=== PATIENT | female | born 1940 | race Caucasian/White ===

== ENCOUNTER → 2017-05-13 09:37 | Outpatient (CLI) | payer MEDICARE ==
[2015-03-30 11:54] VITALS: BMI 19.1
[~2017-05-13 09:37] MED LIST: LISINOPRIL10 MG PO
== END ==
LOC: D.MAMMO 09:37
DX: Z85.3 Personal history of malignant neoplasm of breast (principal); Z12.31 Encounter for screening mammogram for malignant neoplasm of breast

== ENCOUNTER → 2017-05-27 08:05 | Outpatient (CLI) | payer MEDICARE ==
[2015-03-30 11:54] VITALS: BMI 19.1
== END | disposition home or self-care (01) ==
LOC: D.US 08:05
DX: R92.8 Other abnormal and inconclusive findings on diagnostic imaging of breast (principal)

== ENCOUNTER 2017-06-10 05:43 | Day surgery (SDC) | payer MEDICARE ==
[~2017-06-10 05:43] MED LIST changes: +MIRTAZAPINE PO
[2017-06-10 06:17] LABS: BASOPHILS 0.9 % (0-2); EOSINOPHILS 5.4 % (0-7); HEMATOCRIT 43.9 % (36.0-48.0); HEMOGLOBIN 14.8 g/dL (12-16); IMMATURE GRANULOCYTES 0.3 % (0-5); LYMPHOCYTES 30.7 % (15-50); MCHC 33.7 g/dL (31.0-37.0); MCV 91.8 fL (80.0-100.0); MEAN PLATELET VOLUME 9.4 fL (7.4-10.4); NEUTROPHILS 49.7 % (40-80); PLATELET COUNT 295 10x3/uL (130-400); RBC 4.78 10x6/uL (4.00-5.40); RDW 15.5 % (11.5-14.5); WBC 10.1 10x3/uL (4.8-10.8)
[2017-06-10] MEDS ORDERED: REMERON15 MG PO (06:24)
[2017-06-10 06:26] VITALS: BP 188/79; BMI 21.3
[2017-06-10 06:29] LABS: ANION GAP 15.5 mmol/L (8-16); CALCIUM 9.3 mg/dL (8.5-10.1); CARBON DIOXIDE 23.4 mmol/L (21.0-32.0); CREATININE - SERUM 1.1 mg/dL (0.6-1.3); POTASSIUM - SERUM 3.9 mmol/L (3.5-5.1)
[2017-06-10] MEDS ORDERED: HYDROCODONE-APA1 TAB PO (13:28)
--- NOTE | 2017-06-10 15:48 | NUR ---
1430 IV DC WITH CATHER TIP INTACT
--- NOTE | 2017-06-11 12:36 | OP ---
PATIENT NAME: SKYE FAJARDO MEDICAL RECORD: [id number] :38 LOCATION:[facility] ADMISSION DATE: SURGEON: PANDA ARRIOLA MD DATE OF OPERATION: 06/10/2017 PREOPERATIVE DIAGNOSES: 1. Left breast cancer. 2. Chronic obstructive pulmonary disease. 3. Hypertension. 4. Congestive heart failure, unspecified. 5. Hyperlipidemia. POSTOPERATIVE DIAGNOSES: 1. Left breast cancer. 2. Chronic obstructive pulmonary disease. 3. Hypertension. 4. Congestive heart failure, unspecified. 5. Hyperlipidemia. PROCEDURES: 1. Needle loc left breast lumpectomy. 2. Left axillary sentinel lymph node biopsy. SURGEON: Panda Arriola MD REPORT OF PROCEDURE: The patient's left chest and axilla were prepped and draped in sterile fashion. Preoperatively, the patient had undergone needle localization along with lymphoscintigraphy. The needle was projecting out of the superior medial aspect of the patient's left breast. A skin incision was made overlying this. We followed the wire down removing a core of tissue through the breast. The wire was completely excised with the surrounding tissues. We sent this off to radiology to assess if the specimen was intact. The subcutaneous tissues were then irrigated out thoroughly with sterile water and any bleeding was then treated with electrocautery. We packed this wound and then proceeded to the patient's left axilla. We inspected the area and then ended up making an incision on the inferior aspect of the axillary space. The electrocautery was used to dissect through the subcutaneous tissues into the axillary fascia. Once inside the axilla, a Neoprobe was used to find the sentinel lymph node. There was a chain of about 3 sentinel lymph nodes that were right in proximity to one another. These 3 were all removed and sent off for permanent specimen. The highest reading with these was 450 and the low was 240. The remainder of the axilla was free of any major radiotracer uptake. At this point, we irrigated out this wound with sterile water. The fascia was reapproximated with interrupted 3-0 Vicryls and the skin was closed with running subcutaneous 5-0 Monocryl. The breast wound was inspected one last time and there was assurance that there was no bleeding. The subcutaneous tissues were then reapproximated with interrupted 3-0 Vicryl and the skin was closed with running subcutaneous 5-0 Monocryl. We then infused total of 10 mL of 0.25% Marcaine with epi to the surrounding tissues and the wound was dressed appropriately. COMPLICATIONS: None. CONDITION: Stable. OPERATIVE REPORT [id number] SKYE FAJARDO ANESTHESIA: General endotracheal and local. BLOOD LOSS: Minimal. TRANSINT:[id number] Voice Confirmation ID: [id number] DOCUMENT ID: [id number] PANDA ARRIOLA MD at 1236 CC: TAMANNA GRACIA MD [id number] DICTATION DATE: 06/10/17 1334 [employer] STATION: 06/10/[address] [facility] [place] 06/10/17 [facility] [address] [place] [address]
== END 2017-06-10 15:30 | disposition home or self-care (01) ==
LOC: D.OPS 05:43 → D.NM 07:30 → D.PAN 07:30 → D.OPS 15:30
PROVIDERS: Surgery
DX: C50.912 Malignant neoplasm of unspecified site of left female breast (principal); J44.9 Chronic obstructive pulmonary disease, unspecified; I11.0 Hypertensive heart disease with heart failure; I50.9 Heart failure, unspecified; E78.5 Hyperlipidemia, unspecified; Z01.812 Encounter for preprocedural laboratory examination

== ENCOUNTER → 2018-05-12 16:31 | Outpatient (CLI) | payer MEDICARE ==
[~2018-05-12 16:31] MED LIST changes: +HYDROCODONE-APA1 TAB PO; +REMERON15 MG PO
== END | disposition home or self-care (01) ==
LOC: D.MAMMO 09:30
DX: C50.412 Malignant neoplasm of upper-outer quadrant of left female breast (principal)

== ENCOUNTER → 2018-10-07 09:53 | Outpatient (CLI) | payer MEDICARE | END | disposition home or self-care (01) | LOC: D.RAD 09:53 | DX: J44.9 Chronic obstructive pulmonary disease, unspecified (principal) ==

== ENCOUNTER 2019-07-04 08:00 | Outpatient (CLI) | payer MEDICARE | END 2019-07-04 23:59 | disposition home or self-care (01) | LOC: D.MAMMO 08:00 | PROVIDERS: ATTEND Family Medicine | DX: C50.412 Malignant neoplasm of upper-outer quadrant of left female breast (principal); Z85.3 Personal history of malignant neoplasm of breast ==